=== PATIENT | female | born 1990 | race Caucasian/White ===

== ENCOUNTER 2018-10-25 10:20 | Emergency (ER) | payer SELFPAY ==
[2018-10-25] MEDS ORDERED: IBUPROFEN 800 MG TABLET PO ONE (11:30)
--- NOTE | 2018-10-25 11:35 | ER Document Report ---
ED Medical Screen (RME) - General Chief Complaint: Abscess Stated Complaint: PAIN,INFLAMMATION/RIGHT PELVIC AREA Time Seen by Provider: 10/25/18 11:29 Primary Care Provider: TERRI POTRER MD [Primary Care Provider] - Follow up as needed TRAVEL OUTSIDE OF THE [place] IN LAST 30 DAYS: No - HPI Notes: 10/25/18 11:33 20-year-old female presents the ED for complaints of right inguinal pain that has been occurring for the last week, has not tried any hot compress or cold compress. Reports she was shaving her pelvic area, she started having right inguinal pain, approximately 4 days later she started noticing her right labia majora with erythema, but there is no pain in that location. Reports chills. Denies any vaginal pain or vaginal discharge. Does report pain with sexual in tercourse. Denies any dysuria. Denies any abdominal pain, flank pain, nausea vomiting diarrhea, chest pain shortness of breath, headaches, stiff neck, rashes. PHYSICAL EXAMINATION: Vital signs reviewed. GENERAL: Well-appearing, well-nourished and in no acute distress. HEAD: Atraumatic, normocephalic. NECK: Normal range of motion CV: Heart regular rate and rhythm LUNGS: No respiratory distress ABD: Right inguinal tenderness on palpation with noted swelling, right labia majora with erythema and swelling, no area of induration or fluctuance noted MDM: Patient seen and examined for rapid initial assessment. Vital signs reviewed. A comprehensive ED assessment and evaluation of the patient, analysis of test results and completion of the medical decision making process will be conducted by additional ED providers. *Note is created using voice recognition software and may contain spelling, syntax or grammatical errors. - Related Data Allergies/Adverse Reactions: morphine [Morphine] Allergy (Severe, Verified 06/29/15 18:21) rash/swelling clindamycin HCl [From Cleocin] Allergy (Intermediate, Verified 06/29/15 18:21) rash ondansetron HCl [From Zofran] Adverse Reaction (Severe, Verified 06/29/15 18:21) HEADACHE prednisone [Prednisone] Adverse Reaction (Intermediate, Verified 06/29/15 18:21) Hallucinations Past Medical History - Past Medical History Cardiac Medical History: Denies: Hx Heart Attack, Hx Hypertension Pulmonary Medical History: Denies: Hx Asthma, Hx Bronchitis, Hx COPD, Hx Pneumonia Neurological Medical History: Denies: Hx Seizures Endocrine Medical History: Renal/ Medical History: Reports: Hx Ovarian Cysts - in past. Denies: Hx Kidney Stones Malignancy Medical History: GI Medical History: Reports: Hx Gastroesophageal Reflux Disease, Hx Endoscopy. Denies: Hx Ulcer Musculoskeltal Medical History: Denies Hx Arthritis, Reports Hx Musculoskeletal Trauma Psychiatric Medical History: Reports: Hx Anxiety, Hx Attention Deficit Hyperactivity Disorder - add Denies: Hx Bipolar Disorder, Hx Depression, Hx Schizophrenia Traumatic Medical History: Reports: Hx Fractures - age 2 rt hip,jeison ankles x 3,lt elbow,rt hand,jeison wrists,lt rib Infectious Medical History: Denies: Hx HIV Past Surgical History: Reports: Hx Abdominal Surgery - UMBILICAL, Hx Section, Hx Gynecologic Surgery - removed ovarian csyt, Hx Myringotomy, Hx Oral Surgery, Hx Umbilical Hernia - Immunizations Immunizations up to date: Yes Hx Diphtheria, Pertussis, Tetanus Vaccination: No Physical Exam - Vital signs Vitals: Temp Pulse Resp BP Pulse Ox 98.5 F 87 14 118/58 L 100 10/25/18 10:24 10/25/18 10:24 10/25/18 10:24 10/25/18 10:24 10/25/18 10:24 Course - Vital Signs Vital signs: Temp Pulse Resp BP Pulse Ox 98.5 F 87 14 118/58 L 100 10/25/18 10:24 10/25/18 10:24 10/25/18 10:24 10/25/18 10:24 10/25/18 10:24 Doctor's Discharge - Discharge Referrals: TERRI PORTER MD [Primary Care Provider] - Follow up as needed
[2018-10-25 12:07] LABS: ABSOLUTE BASOPHILS # (AUTO) 0.1 10^3/uL (0.0-0.2); ABSOLUTE LYMPHOCYTES (AUTO) 1.3 10^3/uL (0.5-4.7); ABSOLUTE MONOCYTES (AUTO) 0.4 10^3/uL (0.1-1.4); ABSOLUTE NEUT (AUTO) 4.4 10^3/uL (1.7-8.2); EOSINOPHILS % (AUTO) 0.4 % (0-6); HEMATOCRIT 40.1 % (36.0-47.0); LYMPHOCYTES % (AUTO) 21.2 % (13-45); MEAN CORPUSCULAR HEMOGLOBIN 30.5 pg (27.0-33.4); MEAN CORPUSCULAR VOLUME 87 fl (80-97); MONOCYTES % (AUTO) 6.8 % (3-13); PLATELET COUNT 224 10^3/uL (150-450); RED CELL DISTRIBUTION WIDTH 12.4 % (11.5-14.0); SEGMENTED NEUTROPHILS % (AUTO) 70.6 % (42-78); TOTAL CELLS COUNTED % (AUTO) 100 %; WHITE BLOOD COUNT 6.2 10^3/uL (4.0-10.5)
[2018-10-25 12:16] LABS: APPEARANCE,URINE CLEAR; BILIRUBIN,URINE NEGATIVE (NEGATIVE); COLOR,URINE STRAW; GLUCOSE, URINE NEGATIVE (NEGATIVE); KETONES,URINE NEGATIVE (NEGATIVE); LEUKOCYTE ESTERASE,URINE NEGATIVE (NEGATIVE); NITRITE,URINE NEGATIVE (NEGATIVE); PROTEIN,URINE NEGATIVE (NEGATIVE); URINE SPECIFIC GRAVITY 1.004; UROBILINOGEN,URINE NEGATIVE mg/dL (<2.0)
[2018-10-25 12:26] LABS: ALKALINE PHOSPHATASE 93 U/L (38-126); ANION GAP 10 (5-19); ASPARTATE AMINO TRANSFERASE 19 U/L (14-36); BILIRUBIN,DIRECT 0.2 mg/dL (0.0-0.4); BILIRUBIN,TOTAL 0.9 mg/dL (0.2-1.3); BLOOD UREA NITROGEN 10 mg/dL (7-20); CALCIUM 9.9 mg/dL (8.4-10.2); CARBON DIOXIDE 24 mmol/L (22-30); CHLORIDE 105 mmol/L (98-107); GLUCOSE 92 mg/dL (75-110); POTASSIUM 4.3 mmol/L (3.6-5.0); TOTAL PROTEIN 7.8 g/dL (6.3-8.2)
--- NOTE | 2018-10-25 12:47 | RADIOLOGY REPORT (SQ) ---
EXAM DESCRIPTION: U/S NON-OB PELVIS LTD W/O DOP COMPLETED DATE/TIME: 10/25/2018 12:21 pm REASON FOR STUDY: Right inguinal lymphadenopathy COMPARISON: None. TECHNIQUE: Dynamic and static grayscale images acquired of the pelvis via transabdominal approach an d recorded on PACS. Additional selected color Doppler and spectral images recorded. LIMITATIONS: None. FINDINGS: Sonographic imaging of the right inguinal area shows a couple of lymph nodes. The larger measures 2.7 x 1.6 x 1 cm. Some small nodes are seen on the left side. IMPRESSION: Bilateral inguinal adenopathy more prominent on the right. TECHNICAL DOCUMENTATION: JOB ID: [id number] [employer]- All Rights Reserved Rev Reading location - IP/workstation name: [email or web address]
[2018-10-25] MEDS ORDERED: POTASSIUM CHLORIDE 10 MEQ CAPSULE.ER PO ONE (14:28)
[2018-10-25 14:50] LABS: BACTERIA (WET MOUNT) 4+ BACTERIA SEEN; EPITHELIALS (WET MOUNT) 4+ EPITHELIALS SEEN; RBCS (WET MOUNT) RARE RBCS SEEN; T.VAGINALIS (WET MOUNT) NO TRICHOMONAS SEEN; WBCS (WET MOUNT) 1+ WBCS SEEN; YEAST (WET MOUNT) NO YEAST SEEN
--- NOTE | 2018-10-25 14:53 | ER Document Report ---
ED Skin Rash/Insect Bite/Abscs - General Chief Complaint: Abscess Stated Complaint: PAIN,INFLAMMATION/RIGHT PELVIC AREA Time Seen by Provider: 10/25/18 11:29 Primary Care Provider: TERRI PORTER MD [NO LOCAL MD] - Follow up as needed Mode of Arrival: Ambulatory Information source: Patient Notes: 28-year-old female presented to ED for complaint of right inguinal and labial pain. She states his pain going off and on for about 2 days. She states she has been saving her pelvic area and then she started having the pain about 4 days ago. He denies any vaginal bleeding vaginal discharge fever pelvic pain or anything else. She states she has had some chills and painful sexual intercourse. Patient is alert oriented respirations regular and unlabored speaking in full sentences TRAVEL OUTSIDE OF THE [place] IN LAST 30 DAYS: No - HPI Patient complains to provider of: Tender/swollen area, Other - For bilateral inguinal area Onset: Other - 4 to 7 days Quality of pain: Cramping, Sharp Severity: Moderate Pain Level: 3 Skin Character: Abscess - Bartholin cyst, Erythema, Swelling, Tenderness, Other Quality of rash: Painful - Adenopathy bilateral inguinal area Identify cause: No Exacerbated by: Movement, Walking Relieved by: Denies Similar symptoms previously: Yes Recently seen / treated by doctor: No - Related Data Allergies/Adverse Reactions: morphine [Morphine] Allergy (Severe, Verified 06/29/15 18:21) rash/swelling clindamycin HCl [From Cleocin] Allergy (Intermediate, Verified 06/29/15 18:21) rash ondansetron HCl [From Zofran] Adverse Reaction (Severe, Verified 06/29/15 18:21) HEADACHE prednisone [Prednisone] Adverse Reaction (Intermediate, Verified 06/29/15 18:21) Hallucinations Past Medical History - General Information source: Patient - Social History Smoking Status: Current Every Day Smoker Cigarette use (# per day): Yes Smoking Education Provided: Yes - 4 minutes Lives with: Family Family History: Reviewed & Not Pertinent Patient has suicidal ideation: No Patient has homicidal ideation: No - Past Medical History Cardiac Medical History: Reports: None Pulmonary Medical History: Reports: None EENT Medical History: Reports: None Neurological Medical History: Reports: None Endocrine Medical History: Reports: None Renal/ Medical History: Reports: Hx Ovarian Cysts - in past Malignancy Medical History: Reports: None GI Medical History: Reports: Hx Gastroesophageal Reflux Disease, Hx Endoscopy Musculoskeletal Medical History: Reports None, Reports Hx Musculoskeletal Trauma Skin Medical History: Reports Hx Cellulitis - Bartholin abscess, Reports Other - Bilateral inguinal lymphadenopathy Psychiatric Medical History: Reports: Hx Anxiety, Hx Attention Deficit Hyperactivity Disorder - add Traumatic Medical History: Reports: Hx Fractures - age 2 rt hip,jeison ankles x 3,lt elbow,rt hand,jeison wrists,lt rib Infectious Medical History: Reports: None Past Surgical History: Reports: Hx Abdominal Surgery - UMBILICAL, Hx Section, Hx Gynecologic Surgery - removed ovarian csyt, Hx Myringotomy, Hx Oral Surgery, Hx Umbilical Hernia - Immunizations Immunizations up to date: Yes Hx Diphtheria, Pertussis, Tetanus Vaccination: No Review of Systems - Review of Systems Constitutional: No symptoms reported EENT: No symptoms reported Cardiovascular: No symptoms reported Respiratory: No symptoms reported Gastrointestinal: No symptoms reported Genitourinary: No symptoms reported Female Genitourinary: Other - Bartholin abscess/cyst bilateral inguinal Ly mphadenopathy Musculoskeletal: No symptoms reported Skin: No symptoms reported Hematologic/Lymphatic: No symptoms reported Neurological/Psychological: No symptoms reported -: Yes All other systems reviewed and negative Physical Exam - Vital signs Vitals: Temp Pulse Resp BP Pulse Ox 98.5 F 87 14 118/58 L 100 10/25/18 10:24 10/25/18 10:24 10/25/18 10:24 10/25/18 10:24 10/25/18 10:24 Interpretation: Normal - General General appearance: Appears well, Alert - HEENT Head: Normocephalic, Atraumatic Eyes: Normal Pupils: PERRL - Respiratory Respiratory status: No respiratory distress Chest status: Nontender Breath sounds: Normal Chest palpation: Normal - Cardiovascular Rhythm: Regular Heart sounds: Normal auscultation Murmur: No - Abdominal Inspection: Normal Distension: No distension Bowel sounds: Normal Tenderness: Nontender Organomegaly: No organomegaly - Genitourinary External exam: Lesions - Right Bartholin cyst/abscess redness to the right labia lymphadenopathy bilateral Speculum exam: Normal, Vaginal discharge - White Vaginal bleeding: None Bimanuel exam: Normal - Back Back: Normal, Nontender - Extremities General upper extremity: Normal inspection, Nontender, Normal color, Normal ROM, Normal temperature General lower extremity: Normal inspection, Nontender, Normal color, Normal ROM, Normal temperature, Normal weight bearing. No: Natasha's sign - Neurological Neuro grossly intact: Yes Cognition: Normal Orientation: AAOx4 Ulisses Coma Scale Eye Opening: Spontaneous Ulisses Coma Scale Verbal: Oriented [place] Coma Scale Motor: Obeys Commands [place] Coma Scale Total: 15 Speech: Normal Motor strength normal: LUE, RUE, LLE, RLE Sensory: Normal - Psychological Associated symptoms: Normal affect, Normal mood - Skin Skin Temperature: Warm Skin Moisture: Dry Skin Color: Normal Course - Re-evaluation Re-evalutation: 10/25/18 17:33 Discussed labs with patient and written reports of labs given to patient to follow-up with primary doctor. Patient needs to follow-up for her bacterial vaginosis and her Bartholin cyst. She also needs to follow-up concerning the lymphadenopathy. She has been instructed to follow-up for these concerns. She does have a primary doctor. Patient verbalized understanding and agreement with treatment plan. Patient was discharged home. - Vital Signs Vital signs: Temp Pulse Resp BP Pulse Ox 98.5 F 87 14 118/58 L 100 10/25/18 10:24 10/25/18 10:24 10/25/18 10:24 10/25/18 10:24 10/25/18 10:24 - Laboratory Result Diagrams: 10/25/18 11:47 10/25/18 11:47 Discharge - Discharge Clinical Impression: BV (bacterial vaginosis), Bartholin's gland abscess, Lymphadenopathy, inguinal Condition: Stable Disposition: HOME, SELF-CARE Additional Instructions: Bartholin Gland Cyst or Abcess The Bartholin glands are located on each side of the entrance to the vagina. These glands secrete lubricating fluid. If a gland becomes plugged, it can create a "Bartholin's cyst." This creates a large bulge on one side of the labia. A cyst is usually not very painful. If a Bartholin's cyst or gland becomes infected, it creates an abscess. This is a painful collection of pus. One side of the labia becomes swollen, red, and painful. It will be very painful to walk or sit. When a Bartholin's cyst causes mild symptoms, it can sometimes be treated with sitz baths and antibiotics. A painful abscess usually needs to be drained (lanced). If there are signs of infection in the tissues around the abscess, we prescribe antibiotics. Antibiotics are not always necessary for an abscess that's been drained. If packing has been placed, it's important to follow up as scheduled for removal or replacement of the packing. Return if you have increasing fever, body aches, lightheadedness, or if the swelling and pain is getting worse. Lymphadenopathy You have enlargement of lymph glands, called lymphadenopathy. Lymph glands filter tissue fluids. They help to fight infection. Most of the time, enlarged lymph glands are not serious. Lymph glands may react to a viral or bacterial infection by becoming swollen and painful. When the infection goes away, the glands shrink. Sometimes a lymph gland will remain enlarged for a long time after an infection. Occasionally, a lymph gland may be overwhelmed by infection and form an abscess. If an enlarged lymph gland has signs that are suspicious for tumor, the doctor will recommend a biopsy. A suspicious gland usually is NOT painful, grows very slowly, and is rock-hard to touch. See the doctor or return if there is increasing swelling and redness, high fever, difficulty breathing, or any other change for the worse. VAGINOSIS, BACTERIAL: Your exam shows you have bacterial vaginosis. This condition is due to an overgrowth of bacteria in the vagina. Symptoms may include vaginal itching or pain, a smelly discharge, and sometimes burning with urination. Normally this is not transmitted by sexual contact. Vaginosis can be treated with oral or topical antibiotics. Metronidazole (Flagyl) pills are usually effective. Topical vaginal creams include Cleocin and Metro-Gel. You should avoid sexual contact until your symptoms are all better. Call the doctor if you develop pelvic pain, fever, or problems with urination, or if you don't improve as expected. Rocephin You have been given an injection of an antibiotic called Rocephin (ceftriaxone). Sometimes the injection must be combined with antibiotic pills. For some infections, such as an uncomplicated ear infection, Rocephin provides all the antibiotic that's needed. The antibiotic will be in your body for about two days. For serious infections, we usually repeat doses of Rocephin daily. Side effects are very unusual following a shot. Women may develop vaginal yeast infections, and babies can get yeast (thrush) in the mouth following the use of antibiotics. Contact your physician if you have symptoms with this medication. Allergy to this antibiotic can result in hives, wheezing, faintness, or itching. If symptoms of allergy occur, call the doctor at once. DOXYCYCLINE: Doxycycline (Vibramycin, Doryx) is an antibiotic of the tetracycline family. This type of drug is useful for infections of the respiratory tract and genital tract, and is sometimes used for intestinal infections. Unlike most tetracyclines, doxycycline can be taken with food. It is longer acting, and (usually) less prone to side effects than regular tetracycline. Tetracycline antibiotics can stain immature teeth and SHOULD NOT BE TAKEN BY CHILDREN, NURSING MOTHERS, OR WOMEN. Tetracyclines can make you more prone to sunburn. Abdominal cramping, nausea, and diarrhea are occasional side effects. Women may experience vaginal yeast infections. Call the doctor at once if you develop hives, itching, shortness of breath, or lightheadedness. METRONIDAZOLE: Metronidazole (Flagyl) has been prescribed. This medication is used to kill a type of bacteria called anaerobes, and protozoan parasites such as trichomonas and Giardia. Flagyl often causes a metallic taste in the mouth and mild nausea. Do not use alcohol in any form with Flagyl (including alcohol in medication elixirs). Flagyl interacts with alcohol to cause flushing, palpitations, headache, stomach cramps, and vomiting. Do not use Flagyl if you are taking Antabuse (disulfiram). Call the doctor at once if you develop rash, shortness of breath, itching, or lightheadedness. FOLLOW-UP CARE: If you have been referred to a physician for follow-up care, call the physicians office for an appointment as you were instructed or within the next two days. If you experience worsening or a significant change in your symptoms, notify the physician immediately or return to the Emergency Department at any time for re-evaluation. Prescriptions: Doxycycline Hyclate 100 mg PO BID #20 capsule Metronidazole [Flagyl 500 mg Tablet] 500 mg PO BID #14 tablet Forms: Smoking Cessation Education, Return to Work Referrals: TERRI PORTER MD [NO LOCAL MD] - Follow up in 3-5 days
[2018-10-25] MEDS ORDERED: LIDOCAINE 1% INJ-PF (10 MG/ML) 30 ML SDV INJ ONE (14:54)
[2018-10-25] MEDS ORDERED: DOXYCYCLINE HYCLATE 100 MG TABLET PO ONE (14:54)
[2018-10-25] MEDS ORDERED: CEFTRIAXONE INJ 1000 MG VIAL IM ONE (14:54)
[2018-10-25] MEDS ORDERED: HYDROCODONE/ACETAMINOPHEN 5-325 MG (6 TAB/ER DISP) PO PRN (15:03)
[2018-10-25 16:21] LABS: CHLAM PCR NOT DETECTED (NOT DETECT)
[2018-10-25] MEDS ORDERED: METRONIDAZOLE 500 MG TABLET PO ONE (17:23)
[2018-10-25 17:42] VITALS: BP 100/68
== END 2018-10-25 17:42 | disposition home or self-care (01) ==
LOC: ER 10:20
DX: N75.1 Abscess of Bartholin's gland (principal); N76.0 Acute vaginitis; B96.89 Other specified bacterial agents as the cause of diseases classified elsewhere; R59.1 Generalized enlarged lymph nodes; F17.210 Nicotine dependence, cigarettes, uncomplicated; Z88.6 Allergy status to analgesic agent
CPT/HCPCS: 99406; 99283; 96372; 36415; 87210; 84703; 85025; 80053; 81001; 87491; 87591; 76857; J3490; J0696

== ENCOUNTER 2020-03-03 10:53 | Emergency (ER) | payer SELFPAY ==
[2020-03-03] MEDS ORDERED: ACETAMINOPHEN 325 MG TABLET PO ONE (11:51)
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
--- NOTE | 2020-03-03 12:47 | RADIOLOGY REPORT (SQ) ---
EXAM DESCRIPTION: WRIST RIGHT 3 VIEWS IMAGES COMPLETED DATE/TIME: 03/03/2020 12:36 pm REASON FOR STUDY: punched wall x 3days ago, +bruising and swelling COMPARISON: None. NUMBER OF VIEWS: Three views. TECHNIQUE: AP, lateral, and oblique radiographic images acquired of the right wrist. LIMITATIONS: None. FINDINGS: MINERALIZATION: Normal. BONES: No acute fracture or dislocation. No worrisome bone lesions. Normal alignment. SOFT TISSUES: No soft tissue swelling. No foreign body. OTHER: No other significant finding. IMPRESSION: NEGATIVE STUDY OF THE RIGHT WRIST. NO RADIOGRAPHIC EVIDENCE OF ACUTE INJURY. TECHNICAL DOCUMENTATION: JOB ID: [id number] 2010 [employer]- All Rights Reserved Reading location - IP/workstation name: [email or web address]
--- NOTE | 2020-03-03 12:47 | RADIOLOGY REPORT (SQ) ---
EXAM DESCRIPTION: HAND RIGHT 3 VIEWS IMAGES COMPLETED DATE/TIME: 03/03/2020 12:36 pm REASON FOR STUDY: punched wall x 3days ago, +bruising and swelling COMPARISON: None. EXAM PARAMETERS: NUMBER OF VIEWS: Three views. TECHNIQUE: AP, lateral and oblique radiographic images acquired of the right hand. LIMITATIONS: None. FINDINGS: MINERALIZATION: Normal. BONES: No acute fracture or dislocation. No worrisome bone lesions. JOINTS: No effusions. SOFT TISSUES: No soft tissue swelling. No foreign body. OTHER: No other significant finding. IMPRESSION: NEGATIVE STUDY OF THE RIGHT HAND. NO RADIOGRAPHIC EVIDENCE OF ACUTE INJURY. TECHNICAL DOCUMENTATION: JOB ID: [id number] 2010 [employer]- All Rights Reserved Reading location - IP/workstation name: [email or web address]
[2020-03-03 13:44] VITALS: BP 130/72
== END 2020-03-03 13:43 | disposition home or self-care (01) ==
LOC: ER 10:53
DX: M79.641 Pain in right hand (principal); M25.531 Pain in right wrist; W22.09XA Striking against other stationary object, initial encounter
CPT/HCPCS: 99283